=== PATIENT | female | born 1960 | race Asian ===

== ENCOUNTER → 2019-10-09 | Outpatient (CLI) | payer OTHER ==
[~2019-10-09] MED LIST: LEVAQUIN 500 M500 M5 PO; XOPENEX 0.63 MG/3 M1 INH; [UNRECOGNIZED DRUG - OTHER]
== END ==
LOC: RAD 10:49
PROVIDERS: ATTEND Neuromusculoskeletal Medicine & OMM
DX: Z12.31 Encounter for screening mammogram for malignant neoplasm of breast (principal)

== ENCOUNTER → 2019-10-30 | Outpatient (CLI) | payer OTHER | LOC: NUC 13:13 | PROVIDERS: ATTEND Neuromusculoskeletal Medicine & OMM | DX: M81.0 Age-related osteoporosis without current pathological fracture (principal) ==